=== PATIENT | female | born 1980 | race Caucasian/White ===

== ENCOUNTER 2016-10-09 13:40 | Emergency (ER) | payer BC ==
[~2016-10-09] VITALS: Ht 167.6 cm; Wt 79.5 kg
[~2016-10-09 13:40] MED LIST: ALDOMET 250MG250 MG PO; AMBIEN 5MG TABLE5 MG PO; AMBIEN CR 12.12.5 MG PO; APRI 0.15 MG-0.1 TAB PO; ATIVAN 0.50.5 MG/TAB PO; ATIVAN 1MG T1 MG/TAB PO; BUSPAR DIVIDOSE15 MG PO; BUSPAR10 MG PO; CATAPRES 0.1MG0.1 MG PO; CINNAMON500 MG PO; CLIMARA 0.1 PATCH.WK TD; CORTEF 10MG TAB10 MG PO; CORTEF 20MG TAB20 MG PO; CORTEF5 MG PO; DESYREL 50MG50 MG PO; DILAUDID 2MG TAB2 MG PO; ECHINACEA 5001 EACH PO; FISH OIL500 MG PO; FLEXERIL 1010 MG/TAB PO; KLONOPIN 1MG1 MG PO; KLOR-CON M2020 MEQ PO; LEVOXYL0.112 MG PO; LEVOXYL0.125 MG PO; LINZESS290CAP PO; LORTAB 5/500 501 TAB PO; MOBIC 7.5MG7.5 MG PO; MOBIC15 MG PO; MULTI VITAMINS1 TAB PO; MULTIVITAMIN; NAPROSYN500 MG PO; NEURONTIN100 MG/CAP PO; NEURONTIN600 MG/TAB PO; NORCO 325 MG-51 TAB PO; NORVASC 10MG10 MG PO; NORVASC 5MG5 MG/TAB PO; NORVASC2.5 MG PO; PEPCID 20MG TAB20 MG PO; PERCOCET 325 MG1 TA2 PO; PRENATAL1 TA2 PO; PROBIOTIC-MAJOR PO; PROGESTERONE PO; PROTONIX20 MG PO; ROBAXIN 50500 MG/TAB PO; ROBAXIN 75750 MG/TAB PO; ROXICODONE15 MG PO; SYNTHROID 0.10.15 MG PO; SYNTHROID0.112 MG/T PO; SYNTHROID0.125 MG/T PO; TOPROL XL 25MG25 MG PO; TOPROL XL 50MG50 MG PO; TOPROL XL100 MG PO; TRANDATE300 MG PO; TURMERIC500 MG PO; TYLENOL PM EXTR1 TA1 PO; ULTRAM 50MG TAB50 MG PO; VITAMIN D32000 I1 PO; ZOFRAN 4MG T4 MG/TAB PO; ZOFRAN ODT8 MG PO; ZOLOFT 100MG100 MG PO; ZOLOFT 50MG50 MG PO
[2016-10-09 13:43] VITALS: TEMP 98.3
[2016-10-09 14:41] LABS: BASO % 0.4 % (0.0-2.0); EOS # 0.4 (0.0-0.7); EOS % 5.3 % (0-4.0); GRAN # 4.9 (1.4-6.5); GRAN % 65.2 % (42.2-75.2); HEMATOCRIT 44.5 % (37.0-47.0); HEMOGLOBIN 14.4 g/dl (12.5-16.0); LYMPH # 1.7 (1.2-3.4); LYMPH % 22.1 % (20.0-51.0); MEAN CELL VOLUME 85 fl (80.0-100.0); MEAN CORPUSCULAR HEMOGLOBIN 28 pg (27.0-31.0); MEAN CORPUSCULAR HGB CONC 32 g/dl (33.0-37.0); MEAN PLATELET VOLUME 9.9 fl (7.4-10.4); MONO # 0.5 (0.1-0.6); MONO % 6.7 % (1.7-9.3); PLATELET COUNT 225 K/mm3 (130-400); RED BLOOD COUNT 5.23 M/mm3 (4.10-5.30); WHITE BLOOD COUNT 7.5 K/mm3 (4.8-10.8)
[2016-10-09 14:59] LABS: ADJUSTED CALCIUM 9.3 mg/dL (8.4-10.2); ALBUMIN 4.3 gm/dL (3.5-5.0); BILIRUBIN,TOTAL 0.7 mg/dL (0.0-1.0); C-REACTIVE PROTEIN 6.6 mg/dL (0.0-0.9); CALCIUM 9.5 mg/dL (8.4-10.2); CREATININE, serum 0.76 mg/dL (0.52-1.25); POTASSIUM 3.9 mmol/L (3.4-5.0); TOTAL PROTEIN 7.4 gm/dL (6.4-8.2)
[2016-10-09 15:26] LABS: THYROID STIMULATING HORMONE 0.198 uIU/mL (0.465-4.680)
[2016-10-09] MEDS ORDERED: ZOFRAN8 MG PO (18:50)
[2016-10-09] MEDS ORDERED: ULTRAM 50MG TAB50 MG PO (18:50)
[2016-10-09 19:54] VITALS: BP 98/61; PULSE 74
== END 2016-10-09 20:00 | disposition home or self-care (01) ==
LOC: COL.ER 13:40
PROVIDERS: Nurse Practitioner
DX: E86.9 Volume depletion, unspecified (principal); R10.84 Generalized abdominal pain; I10 Essential (primary) hypertension; R11.2 Nausea with vomiting, unspecified; R19.7 Diarrhea, unspecified
CPT/HCPCS: J1720; J2270; J2405; J2550; J2765; J3010; J7030; Q9967

== ENCOUNTER 2016-12-12 12:37 | Emergency (ER) | payer BC ==
[~2016-12-12] VITALS: Ht 167.6 cm; Wt 77.3 kg
[~2016-12-12 12:37] MED LIST changes: +ZOFRAN8 MG PO
[2016-12-12 12:42] VITALS: BP 149/85; TEMP 98.9
[2016-12-12 14:54] VITALS: PULSE 71
== END 2016-12-12 14:55 | disposition home or self-care (01) ==
LOC: COL.ER 12:37
DX: S00.83XA Contusion of other part of head, initial encounter (principal); S00.81XA Abrasion of other part of head, initial encounter; M62.830 Muscle spasm of back; G89.29 Other chronic pain; M54.2 Cervicalgia; E23.0 Hypopituitarism; G90.1 Familial dysautonomia [Riley-Day]; Z87.820 Personal history of traumatic brain injury; W18.30XA Fall on same level, unspecified, initial encounter; Y92.009 Unspecified place in unspecified non-institutional (private) residence as the place of occurrence of the external cause
CPT/HCPCS: J2270

== ENCOUNTER 2017-11-07 16:51 | Emergency (ER) | payer BC ==
[~2017-11-07] VITALS: Ht 167.6 cm; Wt 68.2 kg
[2017-11-07 17:05] VITALS: BP 142/95; TEMP 98
[2017-11-07 21:17] VITALS: PULSE 68
== END 2017-11-07 21:18 | disposition home or self-care (01) ==
LOC: COL.ER 16:51
DX: R47.89 Other speech disturbances (principal); Z79.52 Long term (current) use of systemic steroids; W01.198A Fall on same level from slipping, tripping and stumbling with subsequent striking against other object, initial encounter
CPT/HCPCS: J3010

== ENCOUNTER 2017-12-30 14:36 | Emergency (ER) | payer BC ==
[~2017-12-30] VITALS: Ht 167.6 cm; Wt 70.0 kg
[2017-12-30 14:44] VITALS: TEMP 97.1
[2017-12-30] MEDS ORDERED: ROXICODONE15 MG PO (15:07)
[2017-12-30 15:29] LABS: BASO % 0.3 % (0.0-2.0); EOS # 0.1 (0.0-0.7); EOS % 1.6 % (0-4.0); GRAN # 5.3 (1.4-6.5); GRAN % 70.1 % (42.2-75.2); HEMATOCRIT 40.1 % (37.0-47.0); HEMOGLOBIN 13.3 g/dl (12.5-16.0); LYMPH # 1.7 (1.2-3.4); LYMPH % 22.5 % (20.0-51.0); MEAN CELL VOLUME 91 fl (80.0-100.0); MEAN CORPUSCULAR HEMOGLOBIN 30 pg (27.0-31.0); MEAN CORPUSCULAR HGB CONC 33 g/dl (33.0-37.0); MEAN PLATELET VOLUME 9.6 fl (7.4-10.4); MONO # 0.4 (0.1-0.6); MONO % 5.2 % (1.7-9.3); PLATELET COUNT 221 K/mm3 (130-400); RED BLOOD COUNT 4.43 M/mm3 (4.10-5.30); REDCELL DISTRIBUTION WIDTH-CV 13.2 % (11.5-14.5)
[2017-12-30 15:40] LABS: ALANINE AMINOTRANSFERASE 17 U/L (9-52); ALBUMIN 4.1 gm/dL (3.5-5.0); ALKALINE PHOSPHATASE 45 U/L (50-136); ANION GAP 12 mmol/L (7-16); AST,SGOT 21 U/L (15-37); BILIRUBIN,TOTAL 0.3 mg/dL (0.0-1.0); BLOOD UREA NITROGEN 13 mg/dL (7-17); CALCIUM 9.6 mg/dL (8.4-10.2); CARBON DIOXIDE 23 mmol/L (22-30); CHLORIDE 103 mmol/L (98-107); CREATININE, serum 0.88 mg/dL (0.52-1.25); GLUCOSE 94 mg/dL (74-106); POTASSIUM 4.6 mmol/L (3.4-5.0); SODIUM 138 mmol/L (137-145); TOTAL PROTEIN 7.3 gm/dL (6.4-8.2)
[2017-12-30 16:13] LABS: PROTHROMBIN TIME 11.6 SECONDS (9.7-12.8); TROPONIN-I < 0.012 ng/mL (0.000-0.034)
[2017-12-30 18:00] VITALS: BP 101/65; PULSE 54
== END 2017-12-30 18:00 | disposition home or self-care (01) ==
LOC: COL.ER 14:36
PROVIDERS: Emergency Medicine
DX: G90.9 Disorder of the autonomic nervous system, unspecified (principal); R55 Syncope and collapse; E86.9 Volume depletion, unspecified; I10 Essential (primary) hypertension; E78.5 Hyperlipidemia, unspecified; F41.9 Anxiety disorder, unspecified; F32.9 Major depressive disorder, single episode, unspecified; F17.210 Nicotine dependence, cigarettes, uncomplicated; Z98.890 Other specified postprocedural states
CPT/HCPCS: J7030; Q9967

== ENCOUNTER → 2018-01-06 | Outpatient (CLI) | payer BC | LOC: COL.VAS 09:24 | DX: I34.0 Nonrheumatic mitral (valve) insufficiency (principal); I37.1 Nonrheumatic pulmonary valve insufficiency; I95.9 Hypotension, unspecified; R00.1 Bradycardia, unspecified ==

== ENCOUNTER → 2019-02-18 | Outpatient (CLI) | payer BC | LOC: COL.RAD 14:00 | DX: M47.27 Other spondylosis with radiculopathy, lumbosacral region (principal); G90.1 Familial dysautonomia [Riley-Day] ==

== ENCOUNTER → 2019-02-19 | Outpatient (CLI) | payer BC | LOC: COL.RAD 13:55 | DX: Q65.89 Other specified congenital deformities of hip (principal) | CPT/HCPCS: A9585; Q9967 ==

== ENCOUNTER 2019-05-17 13:23 | Emergency (ER) | payer MEDICARE ==
[~2019-05-17] VITALS: Ht 167.6 cm; Wt 73.9 kg
[2019-05-17 13:35] VITALS: BP 107/68; TEMP 98
[2019-05-17 16:43] VITALS: PULSE 57
== END 2019-05-17 16:43 | disposition home or self-care (01) ==
LOC: COL.ER 13:23
DX: G89.29 Other chronic pain (principal); M54.2 Cervicalgia; I10 Essential (primary) hypertension; E07.9 Disorder of thyroid, unspecified; F17.210 Nicotine dependence, cigarettes, uncomplicated; Z98.890 Other specified postprocedural states
CPT/HCPCS: J3010

== ENCOUNTER 2019-06-03 11:09 | Outpatient (CLI) | payer MEDICARE ==
[2019-06-03 11:15] VITALS: BP 98/61; PULSE 54; TEMP 98.6
[2019-06-03 11:44] LABS: BASO % 0.3 % (0.0-2.0); EOS # 0.1 (0.0-0.7); EOS % 0.8 % (0-4.0); GRAN # 7.5 (1.4-6.5); GRAN % 79.6 % (42.2-75.2); LYMPH # 1.5 (1.2-3.4); LYMPH % 15.9 % (20.0-51.0); MEAN CELL VOLUME 90 fl (80.0-100.0); MEAN CORPUSCULAR HEMOGLOBIN 30 pg (27.0-31.0); MEAN CORPUSCULAR HGB CONC 33 g/dl (33.0-37.0); MEAN PLATELET VOLUME 8.9 fl (7.4-10.4); MONO # 0.3 (0.1-0.6); MONO % 3.2 % (1.7-9.3); PLATELET COUNT 277 K/mm3 (130-400); REDCELL DISTRIBUTION WIDTH-CV 12.8 % (11.5-14.5)
[2019-06-03 11:45] LABS: HEMATOCRIT 35.9 % (37.0-47.0)
[2019-06-03 11:52] LABS: ALBUMIN 4.1 gm/dL (3.5-5.0); BILIRUBIN,TOTAL 0.4 mg/dL (0.0-1.0); CALCIUM 8.9 mg/dL (8.4-10.2); CREATININE, serum 0.82 (0.52-1.25); POTASSIUM 3.3 mmol/L (3.4-5.0); TOTAL PROTEIN 6.7 gm/dL (6.4-8.2)
--- NOTE | 2019-06-03 14:00 | NUR ---
Pt getting frustrated, she ambulates to bathroom and refuses assistance. after she gets back from the bathroom, she is determined to leave. She does have scheduled pain meds that she needs to take, and these are late. Her father has offered to go to her home to get her overdue meds, however she states that is not an option. pt is standing in the hallway, allows this rn to remove her IV, but when I try to hold a 2x2 over the site, she states "I can hold my own hand, you are too much, lady". Christel KAPOOR is attempting to de-escalate pt, and offers her a wheelchair multiple times, however pt refuses. Her father walks with her to the exit, she refused to be accompanied...eventually, pt does return to unit to receive her 2nd liter. requests a different nurse. rn lactation aware. another nurse
[2019-06-03] MEDS ORDERED: VAGIFEM10 MCG VG (15:46)
[2019-06-03] MEDS ORDERED: TOPROL XL 50MG50 MG PO (15:53)
[2019-06-03 16:04] VITALS: BP 116/84; PULSE 69
[2019-06-03] MEDS ORDERED: ZOFRAN 4MG T4 MG/TAB PO (16:04)
[2019-06-03] MEDS ORDERED: PHENERGAN 25 TA25 MG PO (16:04)
[2019-06-03] MEDS ORDERED: XANAX 1MG1 MG PO (16:06)
== END 2019-06-03 17:00 | disposition home or self-care (01) ==
LOC: EUO 11:09
PROVIDERS: Family Medicine
DX: E27.49 Other adrenocortical insufficiency (principal); E86.0 Dehydration; E21.5 Disorder of parathyroid gland, unspecified
CPT/HCPCS: J1720; J7030

== ENCOUNTER → 2019-12-21 | Outpatient (CLI) | payer MEDICARE ==
[~2019-12-21] MED LIST changes: +PHENERGAN 25 TA25 MG PO; +VAGIFEM10 MCG VG; +XANAX 1MG1 MG PO
== END ==
LOC: COL.RAD 07:57
DX: M47.812 Spondylosis without myelopathy or radiculopathy, cervical region (principal)

== ENCOUNTER → 2019-12-22 | Outpatient (CLI) | payer MEDICARE | LOC: COL.RAD 08:15 | DX: M75.81 Other shoulder lesions, right shoulder (principal) | CPT/HCPCS: A9503 ==

== ENCOUNTER 2020-03-28 20:19 | Emergency (ER) | payer MEDICARE ==
[~2020-03-28] VITALS: Ht 167.6 cm; Wt 79.5 kg
[2020-03-28 20:27] VITALS: TEMP 98.3
[2020-03-28 21:06] LABS: BASO % 0.6 % (0.0-2.0); EOS # 0.5 (0.0-0.7); EOS % 7.3 % (0-4.0); GRAN # 3.6 (1.4-6.5); HEMOGLOBIN 12.8 g/dl (12.5-16.0); LYMPH # 1.9 (1.2-3.4); MEAN CELL VOLUME 92 fl (80.0-100.0); MEAN CORPUSCULAR HEMOGLOBIN 29 pg (27.0-31.0); MEAN CORPUSCULAR HGB CONC 32 g/dl (33.0-37.0); MEAN PLATELET VOLUME 8.9 fl (7.4-10.4); MONO # 0.7 (0.1-0.6); MONO % 9.8 % (1.7-9.3); PLATELET COUNT 235 K/mm3 (130-400); RED BLOOD COUNT 4.35 M/mm3 (4.10-5.30); REDCELL DISTRIBUTION WIDTH-CV 13.3 % (11.5-14.5)
[2020-03-28] MEDS ORDERED: LYSTEDA650 MG PO (21:06)
[2020-03-28] MEDS ORDERED: PAXIL 20MG20 MG PO (21:17)
[2020-03-28] MEDS ORDERED: LAMICTAL 25MG T25 MG (21:19)
[2020-03-28 21:30] VITALS: BP 112/78; PULSE 80
== END 2020-03-28 21:30 | disposition home or self-care (01) ==
LOC: COL.ER 20:19
PROVIDERS: Family Medicine
DX: I80.3 Phlebitis and thrombophlebitis of lower extremities, unspecified (principal)

== ENCOUNTER 2020-05-11 00:34 | Emergency (ER) | payer MEDICARE ==
[~2020-05-11] VITALS: Ht 167.6 cm; Wt 81.8 kg
[~2020-05-11 00:34] MED LIST changes: +LAMICTAL 25MG T25 MG; +LYSTEDA650 MG PO; +PAXIL 20MG20 MG PO
[2020-05-11 00:37] VITALS: BP 141/96; PULSE 78; TEMP 98.6
== END 2020-05-11 03:00 | disposition left against medical advice (07) ==
LOC: COL.ER 00:34
DX: M25.551 Pain in right hip (principal); R51 Headache; F41.9 Anxiety disorder, unspecified; G89.29 Other chronic pain; F17.200 Nicotine dependence, unspecified, uncomplicated; Z88.8 Allergy status to other drugs, medicaments and biological substances; Y04.0XXA Assault by unarmed brawl or fight, initial encounter; Y92.009 Unspecified place in unspecified non-institutional (private) residence as the place of occurrence of the external cause

== ENCOUNTER → 2020-06-22 | Outpatient (CLI) | payer MEDICARE | LOC: ZCOL.LAB 17:30 | DX: Z20.828 Contact with and (suspected) exposure to other viral communicable diseases (principal) ==

== ENCOUNTER → 2020-11-29 | Outpatient (CLI) | payer MEDICARE | LOC: COL.RAD 14:40 | DX: Z87.820 Personal history of traumatic brain injury (principal) ==

== ENCOUNTER 2021-05-18 19:40 | Emergency (ER) | payer MEDICARE ==
[2021-05-18 19:53] VITALS: TEMP 98.1
[2021-05-18 21:03] LABS: BASO % 0.3 % (0.0-2.0); EOS # 0.2 (0.0-0.7); EOS % 2.5 % (0-4.0); GRAN # 2.6 (1.4-6.5); GRAN % 37.5 % (42.2-75.2); HEMATOCRIT 40.4 % (37.0-47.0); HEMOGLOBIN 13.9 g/dl (12.5-16.0); LYMPH # 3.4 (1.2-3.4); LYMPH % 50.4 % (20.0-51.0); MEAN CELL VOLUME 85 fl (80.0-100.0); MEAN CORPUSCULAR HEMOGLOBIN 29 pg (27.0-31.0); MEAN CORPUSCULAR HGB CONC 34 g/dl (33.0-37.0); MEAN PLATELET VOLUME 9.6 fl (7.4-10.4); MONO # 0.6 (0.1-0.6); MONO % 9.2 % (1.7-9.3); PLATELET COUNT 274 K/mm3 (130-400); RED BLOOD COUNT 4.77 M/mm3 (4.10-5.30); REDCELL DISTRIBUTION WIDTH-CV 13.1 % (11.5-14.5)
[2021-05-18 21:43] LABS: ALBUMIN 4.1 gm/dL (3.5-5.0); BILIRUBIN,TOTAL 0.4 mg/dL (0.2-1.2); CALCIUM 9.7 mg/dL (8.4-10.2); CREATININE, serum 0.84 mg/dL (0.57-1.11); TOTAL PROTEIN 6.7 gm/dL (6.2-8.1)
[2021-05-18 21:48] LABS: TROPONIN-I 0.017 ng/mL (0.00-0.033)
[2021-05-18 23:36] VITALS: BP 113/78; PULSE 50
== END 2021-05-19 00:18 | disposition home or self-care (01) ==
LOC: COL.ER 19:40
PROVIDERS: Emergency Medicine
DX: E27.40 Unspecified adrenocortical insufficiency (principal); E86.0 Dehydration; E87.6 Hypokalemia; I95.9 Hypotension, unspecified; I10 Essential (primary) hypertension; K21.9 Gastro-esophageal reflux disease without esophagitis; F17.290 Nicotine dependence, other tobacco product, uncomplicated; Z79.899 Other long term (current) drug therapy
CPT/HCPCS: J1720; J3480; J7030

== ENCOUNTER 2022-01-26 16:56 | Emergency (ER) | payer MEDICARE ==
[~2022-01-26] VITALS: Ht 167.6 cm; Wt 50.0 kg
[2022-01-26 17:05] VITALS: TEMP 97.7
[2022-01-26 17:59] LABS: BASO % 0.5 % (0.0-2.0); EOS # 0.1 K/mm3 (0.0-0.7); EOS % 1.3 % (0.0-4.0); GRAN # 2.3 K/mm3 (1.4-6.5); GRAN % 57.7 % (42.2-75.2); HEMATOCRIT 42.7 % (37.0-47.0); HEMOGLOBIN 14.2 g/dl (12.5-16.0); LYMPH # 1.4 K/mm3 (1.2-3.4); LYMPH % 35.4 % (20.0-51.0); MEAN CELL VOLUME 85 fl (80.0-100.0); MEAN CORPUSCULAR HEMOGLOBIN 28 pg (27-31); MEAN CORPUSCULAR HGB CONC 33 g/dl (33.0-37.0); MONO # 0.2 K/mm3 (0.1-0.6); MONO % 4.8 % (1.7-9.3); PLATELET COUNT 270 K/mm3 (130-400); RED BLOOD COUNT 5.04 M/mm3 (4.10-5.30); REDCELL DISTRIBUTION WIDTH-CV 12.5 % (11.5-14.5)
[2022-01-26 18:20] LABS: ALBUMIN 4.8 gm/dL (3.5-5.0); C-REACTIVE PROTEIN 0.03 mg/dL (0.00-0.50); CREATININE, serum 0.83 mg/dL (0.57-1.11); POTASSIUM 4.2 mmol/L (3.5-4.5); TOTAL PROTEIN 7.5 gm/dL (6.2-8.1)
[2022-01-26 19:57] VITALS: BP 113/71; PULSE 75
== END 2022-01-26 20:00 | disposition home or self-care (01) ==
LOC: COL.ER 16:56
PROVIDERS: Physician Assistant
DX: J02.9 Acute pharyngitis, unspecified (principal); K08.89 Other specified disorders of teeth and supporting structures; Z20.822 Contact with and (suspected) exposure to COVID-19; Z28.310 Unvaccinated for COVID-19
CPT/HCPCS: J1885; J2270; J7030

== ENCOUNTER 2024-05-27 22:46 | Emergency (ER) | payer MEDICARE ==
[~2024-05-27] VITALS: Ht 167.6 cm; Wt 63.6 kg
[~2024-05-27 22:46] MED LIST changes: +BUSPAR 30MG30 MG/TAB PO; -BUSPAR DIVIDOSE15 MG PO; -LAMICTAL 25MG T25 MG; +LAMICTAL 25MG T25 MG PO
[2024-05-27] MEDS ORDERED: Ondansetron 4 MG/2 ML VIAL IV ONE (23:00)
[2024-05-27 23:18] LABS: BASO % 0.2 % (0.0-2.0); EOS # 0.1 K/mm3 (0.0-0.7); EOS % 0.6 % (0.0-4.0); GRAN # 7.7 K/mm3 (1.4-6.5); GRAN % 72.8 % (42.2-75.2); HEMATOCRIT 40.8 % (37.0-47.0); HEMOGLOBIN 14.5 g/dl (12.5-16.0); LYMPH # 2.2 K/mm3 (1.2-3.4); LYMPH % 21.3 % (20.0-51.0); MEAN CELL VOLUME 83 fl (80.0-100.0); MEAN CORPUSCULAR HEMOGLOBIN 30 pg (27-31); MEAN CORPUSCULAR HGB CONC 36 g/dl (33.0-37.0); MEAN PLATELET VOLUME 9.1 fl (7.4-10.4); MONO # 0.5 K/mm3 (0.1-0.6); MONO % 4.9 % (1.7-9.3); PLATELET COUNT 309 K/mm3 (130-400); RED BLOOD COUNT 4.92 M/mm3 (4.10-5.30); REDCELL DISTRIBUTION WIDTH-CV 12.6 % (11.5-14.5)
[2024-05-27] MEDS ORDERED: LORazepam 2 MG/ML 1 ML VIAL IV ONE (23:30)
[2024-05-27 23:37] LABS: ALBUMIN 4.5 g/dL (3.5-5.0); BILIRUBIN,TOTAL 0.8 mg/dL (0.2-1.2); CALCIUM 10.3 mg/dL (8.4-10.2); CREATININE, serum 0.79 mg/dL (0.57-1.11); TOTAL PROTEIN 7.1 g/dl (6.2-8.1)
[2024-05-27] MEDS ORDERED: Potassium Chloride 100 ML IV ONE (23:45)
[2024-05-27] MEDS ORDERED: droPERidol 2.5 MG/ML 2 ML VIAL IV ONE (23:45)
[2024-05-28] MEDS ORDERED: NS 500 ML IV ONE (01:15)
[2024-05-28] MEDS ORDERED: ZOFRAN ODT4 MG PO (01:29)
[2024-05-28 01:47] VITALS: BP 167/94; PULSE 85
[2024-05-28] MEDS ORDERED: NS 1,000 ML IV ONE (23:45)
[2024-05-29] MEDS ORDERED: PRISTIQ100 MG PO (10:06)
== END 2024-05-28 01:47 | disposition home or self-care (01) ==
LOC: COL.ER 22:46
PROVIDERS: Physician Assistant
DX: R10.84 Generalized abdominal pain (principal); R03.0 Elevated blood-pressure reading, without diagnosis of hypertension; R11.2 Nausea with vomiting, unspecified; Z87.891 Personal history of nicotine dependence
CPT/HCPCS: J1790; J2060; J2405; J3480; J7030; J7040

== ENCOUNTER 2024-05-28 13:00 | Observation (INO) | payer MEDICARE ==
[~2024-05-28] VITALS: Ht 167.6 cm; Wt 71.5 kg
[~2024-05-28 13:00] MED LIST changes: +ZOFRAN ODT4 MG PO
[2024-05-28] MEDS ORDERED: NS 1,000 ML IV ONE ×2 (14:45)
[2024-05-28] MEDS ORDERED: Promethazine 50 MG/ML 1 ML VIAL IM ONE (14:45)
[2024-05-28] MEDS ORDERED: Morphine 10 MG/ML VIAL IM ONE (14:45)
[2024-05-28 15:35] LABS: BASO % 0.2 % (0.0-2.0); EOS % 0.1 % (0.0-4.0); GRAN # 9.2 K/mm3 (1.4-6.5); GRAN % 80.4 % (42.2-75.2); HEMATOCRIT 42.5 % (37.0-47.0); HEMOGLOBIN 15.4 g/dl (12.5-16.0); LYMPH # 1.4 K/mm3 (1.2-3.4); LYMPH % 12.2 % (20.0-51.0); MEAN CELL VOLUME 81 fl (80.0-100.0); MEAN CORPUSCULAR HEMOGLOBIN 29 pg (27-31); MEAN CORPUSCULAR HGB CONC 36 g/dl (33.0-37.0); MEAN PLATELET VOLUME 9.2 fl (7.4-10.4); MONO # 0.8 K/mm3 (0.1-0.6); MONO % 6.7 % (1.7-9.3); PLATELET COUNT 316 K/mm3 (130-400); RED BLOOD COUNT 5.27 M/mm3 (4.10-5.30); REDCELL DISTRIBUTION WIDTH-CV 12.5 % (11.5-14.5)
[2024-05-28 15:50] LABS: ALBUMIN 4.4 g/dL (3.5-5.0); BILIRUBIN,TOTAL 1.3 mg/dL (0.2-1.2); CALCIUM 9.4 mg/dL (8.4-10.2); CREATININE, serum 0.72 mg/dL (0.57-1.11)
[2024-05-28] MEDS ORDERED: Iohexol 300 - 100 ML VIAL IV ONE (16:09)
[2024-05-28] MEDS ORDERED: NS 100 ML IV SCH (16:10)
[2024-05-28] MEDS ORDERED: Docusate Sodium 100 MG CAP PO PRN (17:00)
[2024-05-28] MEDS ORDERED: Ondansetron 4 MG/2 ML VIAL IV PRN (17:00)
[2024-05-28] MEDS ORDERED: NS 1,000 ML IV SCH (17:00)
[2024-05-28] MEDS ORDERED: Acetaminophen 325 MG TAB PO PRN (17:00)
[2024-05-28] MEDS ORDERED: Morphine 4 MG/ML VIAL IV PRN (17:00)
[2024-05-28] MEDS ORDERED: Polyethylene Glycol 3350 17 GM PDS PO PRN (17:00)
[2024-05-28 17:38] LABS: COLLECTION METHOD CLEAN CATCH
[2024-05-28 17:53] LABS: URINE APPEARANCE CLEAR (CLEAR/HAZY); URINE BLOOD NEGATIVE (NEGATIVE); URINE COLOR YELLOW (YELLOW); URINE GLUCOSE NEGATIVE (NEGATIVE); URINE KETONE 4+ (NEGATIVE); URINE NITRATE NEGATIVE (NEGATIVE); URINE PROTEIN(semi-quant) 1+ (NEGATIVE); URINE UROBILINOGEN 0.2 E.U/dL (0.2-1.0)
[2024-05-28] MEDS ORDERED: Potassium Chloride 100 ML IV SCH (18:15)
[2024-05-28] MEDS ORDERED: *Potassium Replacement Protocol MC SCH (18:15)
--- NOTE | 2024-05-28 19:30 | NUR ---
RECEIVED REPORT FROM Himanshu NURSEANA. PATIENT ARRIVAL TO UNIT FOR ADMIT TO ROOM 319 PENDING.
[2024-05-28 20:00] VITALS: BP 117/75; PULSE 110; TEMP 98.4
--- NOTE | 2024-05-28 20:13 | NUR ---
PATIENT ARRIVE TO ROOM, PER E.D. CART.
[2024-05-28 21:00] VITALS: BP_SYST 117
--- NOTE | 2024-05-28 21:42 | NUR ---
PATIENT REFUSING TO HAVE VS TAKEN DURING THE NIGHT OR HAVE LABS DRAWN. INFORMED ALLEY CLEANER PROVIDER OF PATIENT'S REFUSAL WITH ORDERS GIVEN TO HAVE VS CHECKED EVERY 8 HOURS.
[2024-05-28 23:41] VITALS: BP 110/74; PULSE 87; TEMP 98.3
[2024-05-29] VITALS (8 sets, daily range): BP systolic 104–114; BP diastolic 57–80; PULSE 68–70; TEMP 98.3–98.4
--- NOTE | 2024-05-29 00:59 | NUR ---
REQUESTED AND GIVEN MORPHINE FOR CHRONIC PAIN, SEE MAR. NO OTHER NEEDS REPORTED AT THIS TIME.
[2024-05-29] MEDS ORDERED: Potassium Chloride 100 ML IV SCH (03:15)
--- NOTE | 2024-05-29 07:03 | NUR ---
CHANGE OF SHIFT REPORT GIVEN TO DAY SHIFT NURSEKAVIN.
--- NOTE | 2024-05-29 08:40 | NUR ---
THIS RN WAS AT BEDSIDE WHEN THE PATIENT ADDRESSED CONCERNS FOR NOT BEING ON HER NORMAL HOME MEDICATIONS, ESPCIALLY ONES TO PREVENT SEIZURE ACTIVITY. PATIENT STATES SHE HAS NOT BEEN DRY HEAVING AND HAS NOT VOMITED SINCE YESTERDAY. REPORTS HER PAIN IS A 7/10 IN HER ABDOMEN. PATIENT ALSO STATES SHE IS WORRIED ABOUT STAYING UP ON HER HOME REGIMEN OF PAIN MANAGEMENT. PATIENT HAS BEEN TOLERATING HER CLEAR LIQUID DIET WITH SMALL SIPS. THE IV POTASSIUM WAS BEGINING TO IRRITATE HER IV AND PATIENT REQUESTED IT BE TURNED OFF. THIS RN INFORMED PATIENT THAT SHE COULD TAKE AN ORAL VERSION AND SHE REQUESTED TO DO THAT. THIS RN WAS IN THE ROOM WITH PATIENT WHILE ON THE PHONE WITH [facility] AND WE REVIEWED HER HOME MEDICATIONS LIST. THIS RN UPDATED DR. FOWLER.
[2024-05-29] MEDS ORDERED: Magnesium Sulfate 4% 50 ML IV ONE (10:00)
[2024-05-29] MEDS ORDERED: PRISTIQ100 MG PO (10:06)
[2024-05-29] MEDS ORDERED: busPIRone 7.5 MG TABLET PO SCH (10:25)
[2024-05-29] MEDS ORDERED: Hydrocortisone 10 MG TAB PO SCH (10:25)
[2024-05-29] MEDS ORDERED: lamoTRIgine 100 MG TAB PO SCH (10:25)
[2024-05-29] MEDS ORDERED: ALPRAZolam 0.5 MG TAB PO PRN (10:30)
[2024-05-29] MEDS ORDERED: oxyCODONE 5 MG TAB PO PRN (10:30)
--- NOTE | 2024-05-29 11:35 | NUR ---
THIS RN ENTERED PATIENTS ROOM TO ADMINISTER HER ORAL MORNING MEDICATIONS ORDERED. PATIENT MOTHER IS AT BEDSIDE AT THIS TIME. THIS RN ASKED PATIENT IF SHE WOULD LIKE TO TAKE HER MEDICATIONS ONE AT A TIME SINCE SHE HAS HAD A DIFFICULT TIME TOLERATING LARGE AMOUNTS OF FLUID INTAKE. THE PATIENT BECAME AGGITATED THAT I WAS GIVING HER ORAL MEDICATIONS. WANTS TO KNOW IF THEY CAN BE GIVEN IV. THIS RN EXPLAINED THAT SINCE ABDOMINAL PAIN HAS IMPROVED, SHE HAS HAD NO NAUSEA OR VOMITING, AND HAS BEEN TOLERATING INTAKE WE WOULD LIKE TO SEE HOW SHE TOLERATES HER ORAL MEDICATIONS. PATIENT IS NOT OK WITH THIS. SHE WAS UNDER THE IMPRESSION THAT SHE WOULD BE RECEIVING EVERYTHING SHE POSSIBLY COULD IV MEDICATIONS FOR LONG SHE COULD. THIS RN ASKED THE PATIENT WHEN SHE FELT IT WOULD BE APPROPRIATE TO START BACK ON ORAL MEDICATIONS. PATIENT THEN ASKED WHY I'M TELLING HER WHAT TO DO AND ALSO ASKING FOR HER OPINION AT THE SAME TIME. TRIED EXPLAINING TO THE PATIENT THAT I WAS TRYING TO INVOLVE HER IN HER CARE, SHE DOES NOT FEEL LIKE THIS IS TRUE AND REFUSES TO TAKE ORAL MEDICATIONS FROM ME. PATIENT PULLS OUT HER BAG AND REMOVES HER HOME MEDICATION OF 100MG LAMOTRIGINE AND STATES SHE'LL TAKE IT HERSELF. THIS RN EXPLAINED TO THE PATIENT SHE CANNOT DO THAT SINCE WE WILL HAVE NO DOCUMENTATION OF WHAT SHE'S BEEN TAKING. THIS RN TOLD PATIENT THAT I HAD THE SAME MEDICATION WITH ME THAT I COULD DISPENSE TO HER. AFTER ARGUING SHE AGREED TO TAKE THAT MEDICATIONS. PATIENT REFUSES TO HAVE HER HOME MEDICATIONS REMOVED FROM THE ROOM. PATIENT STATES SHE WILL NOT TAKE ANY OTHER MEDICATIONS ORALLY. THIS RN UPDATED DR. FOWLER OF THIS REFUSAL AND DOCUMENTED IN THE eMAR. THIS RN ASKED IF WE COULD ATTEMPT DRAWING HER ORDERED LABS OFF OF HER IV LINE SINCE SHE IS REFUSING LAB DRAWS. SHE REFUSES ME TO PULLED BLOOD FROM HER IV OR GET POKED BY LAB, SHE ALSO SAYS SHE WILL NOT ALLOW US TO TRY TO PLACE ANOTHER CENTRAL LINE. THIS RN NOTIFIED DR. FOWLER AND LAB. THIS RN TOLD THE PATIENT I WOULD CHART ALL ORAL MEDICATIONS REFUSED FOR NOW AND SPEAK WITH DR. FOWLER ABOUT THE PATIENT CONCERNS. WILL CONTINUE TO MONITOR FROM HERE.
[2024-05-29] MEDS ORDERED: Gabapentin 400 MG CAP PO SCH (13:00)
[2024-05-29] MEDS ORDERED: Pantoprazole 40 MG in NS 10 ML IV ONE (13:15)
--- NOTE | 2024-05-29 15:23 | NUR ---
Data: Patient and Patient's Mother accepted spiritual care visit offered during Embalmer Assistant rounds. Mother is Latter-Day. Daughter is undecided. RN visited during spiritual care visit to administer medications and answer Patient's questions. Assessment: Daughter is frustrated with her health concerns. Plan of Care: Embalmer Assistant provided supportive listening and a bible. Other resources made available were noted and/or photographed by Patient's Mother. Both Patient and her Mother expressed appreciation for the visit. Chaplains will remain available as needed/requested while Patient is admitted to this hospital.
--- NOTE | 2024-05-29 15:30 | NUR ---
THIS RN WAS ADMINISTERING MEDICATIONS WHEN PATIENT ASKED OF HER CORTISOL LAB VALUES HAVE COME BACK. THIS RN INFORMED PATIENT THAT THIS RN ASKED DR. FOWLER IF SHE WANTED TO ORDER THIS AROUND 1530 WHEN THE PATIENT HAD FIRST REQUESTED IT AND DR. FOWLER STATED SHE DID NOT NEED THAT INFORMATION AND WAS NOT GOING TO ORDER IT. PATIENT WAS UPSET BY THIS. STATES SHE "DOESN'T CARE OF THE DOCTOR DOESN'T WANT TO KNOW THE LAB VALUE, SHE WANTS TO KNOW IT." PATIENT ASKED IF I WOULD REITERATE TO DR. FOWLER THAT SHE IS REQUESTING IT AND IF SHE STILL REFUSES SHE WOULD LIKE TO TALK TO HER HERSELF. SHE THREATENED TO CALL HER PCP DR. VALENZUELA IF DR. FOWLER WOULD NOT ORDER THE LAB. THIS RN INFORMED DR. FOWLER OF EVERYTHING AND SHE STATED SHE WOULD NOT ORDER THE LAB AND ALSO SHE IS LEAVING THE HOSPITAL NOW SO SHE WILL NOT BE ABLE TO SEE THE PATIENT AGAIN NOELLE.
[2024-05-29 15:46] LABS: EOS % 0.2 % (0.0-4.0); GRAN # 4.7 K/mm3 (1.4-6.5); HEMATOCRIT 37.3 % (37.0-47.0); MEAN CELL VOLUME 83 fl (80.0-100.0); MEAN CORPUSCULAR HEMOGLOBIN 29 pg (27-31); MEAN CORPUSCULAR HGB CONC 36 g/dl (33.0-37.0); MEAN PLATELET VOLUME 9.3 fl (7.4-10.4); MONO # 0.3 K/mm3 (0.1-0.6); MONO % 4.5 % (1.7-9.3); PLATELET COUNT 299 K/mm3 (130-400); RED BLOOD COUNT 4.52 M/mm3 (4.10-5.30); REDCELL DISTRIBUTION WIDTH-CV 12.8 % (11.5-14.5)
[2024-05-29 15:48] LABS: HEMOGLOBIN 13.3 g/dl (12.5-16.0)
[2024-05-29 15:56] LABS: ALBUMIN 3.8 g/dL (3.5-5.0); BILIRUBIN,TOTAL 0.9 mg/dL (0.2-1.2); CALCIUM 8.6 mg/dL (8.4-10.2); CREATININE, serum 0.76 mg/dL (0.57-1.11); POTASSIUM 3.2 mEq/L (3.5-4.5); TOTAL PROTEIN 5.9 g/dl (6.2-8.1)
[2024-05-29] MEDS ORDERED: Potassium Bicarbonate/Citrate 20 MEQ Effervescent TAB PO SCH (17:00)
[2024-05-30] VITALS (10 sets, daily range): BP systolic 102–127; BP diastolic 62–88; PULSE 73–102; TEMP 97.4–98.7
[2024-05-30 07:18] LABS: BASO % 0.2 % (0.0-2.0); EOS # 0.3 K/mm3 (0.0-0.7); EOS % 4.5 % (0.0-4.0); GRAN % 33.8 % (42.2-75.2); HEMATOCRIT 37.5 % (37.0-47.0); LYMPH # 3.3 K/mm3 (1.2-3.4); LYMPH % 55.8 % (20.0-51.0); MEAN CELL VOLUME 85 fl (80.0-100.0); MEAN CORPUSCULAR HEMOGLOBIN 29 pg (27-31); MEAN CORPUSCULAR HGB CONC 35 g/dl (33.0-37.0); MEAN PLATELET VOLUME 9.6 fl (7.4-10.4); MONO # 0.3 K/mm3 (0.1-0.6); MONO % 5.7 % (1.7-9.3); PLATELET COUNT 288 K/mm3 (130-400); RED BLOOD COUNT 4.44 M/mm3 (4.10-5.30); REDCELL DISTRIBUTION WIDTH-CV 13.2 % (11.5-14.5)
[2024-05-30 07:36] LABS: ALANINE AMINOTRANSFERASE 64 U/L (0-55); ALBUMIN 3.6 g/dL (3.5-5.0); ALKALINE PHOSPHATASE 38 U/L (40-150); ANION GAP 8 mmol/L (7-16); AST,SGOT 47 U/L (5-34); BILIRUBIN,TOTAL 0.9 mg/dL (0.2-1.2); CALCIUM 8.6 mg/dL (8.4-10.2); CHLORIDE 113 mEq/L (98-107); CREATININE, serum 0.75 mg/dL (0.57-1.11); POTASSIUM 3.6 mEq/L (3.5-4.5); SODIUM 142 mEq/L (136-145); TOTAL PROTEIN 5.8 g/dl (6.2-8.1)
[2024-05-30 08:08] LABS: BLOOD UREA NITROGEN < 5 mg/dL (7-19); GLUCOSE 68 mg/dL (70-99)
--- NOTE | 2024-05-30 08:15 | NUR ---
THE PATIENT RESTED WELL OVER NIGHT. PRN PAIN MEDICATION PROVIDED FOR ABD PAIN MOSTLY RATED 6/10. THE PATIENT WAS ABLE TO TAKE IN CLEAR LIQUIDS AND ORAL MEDICATIONS WITHOUT N/V UNTIL AM. THE PATIENT REPORTED NAUSEA AND THE NEED FOR MORE PAIN MEDICAITON, BUT STATED ORAL PAIN MEDICAITON COULD NOT BE TAKEN D/T THE NAUSEA. SHE THEN REQUESTED IV MORPHINE. ZOFRAN AND MORPHINE IVP WERE PROVIDED. VITAL SIGNS STABLE OVER NIGHT.
[2024-05-30] MEDS ORDERED: Potassium Bicarbonate/Citrate 20 MEQ Effervescent TAB PO SCH (09:15)
--- NOTE | 2024-05-30 10:42 | NUR ---
Patient awake, alert and oriented. In bed, states her abdominal pain is worsening and that "I don't feel like this hospital is adequately treating me." She states concerns regarding her cortisol levels and that per her "I need to be on antibiotics, I know this is bacterial and I am getting worse." No BM overnight, cautiously agrees to take PO pills this AM, but again repeats "I will take them but I am getting worse, these will all come straight out of me." Takes all PO meds after discussion.
--- NOTE | 2024-05-30 13:55 | NUR ---
Dr. Burrell at the bedside rounding on patient. Patient's mother, father, and son at the bedside. Daughter in law participating in rounds with hospitalist. All questions asked by patient and family member answered by Dr. Burrell. Patient getting frustrated and agitated, repeatedly requesting that a cortisol level ordered. Dr. Burrell repeatedly explaining her plan of care and what tests are and are not necessary. Patient interrupting frequently while Dr. Burrell is trying to discuss case. Dr. Burrell offering to discuss case with PCP - pt verbalizes agreement. Repeated discussion of dosage of hydrocortisone - explained that our records have been checked with patient's stated Offer to transfer to another facility - patient and family state concern about information getting missed if she is transfered.
[2024-05-30] MEDS ORDERED: Pantoprazole 40 MG in NS 10 ML IV SCH (14:30)
[2024-05-30] MEDS ORDERED: Hydrocortisone 10 MG TAB PO ONE (14:45)
--- NOTE | 2024-05-30 15:15 | NUR ---
Dr. Burrell back at the bedside after discussing case with Dr. Mcfarland (patient's PCP). Pt to start general diet, adjust hydrocortisone dose; other lab results discussed. Patient agreeable to plan.
--- NOTE | 2024-05-30 18:29 | NUR ---
Patient in better spirits this afternoon, son at the bedside. Tolerated being advanced for dinner - per pt ate one piece of a quesadilla, some fruit and ice cream. No emesis or diarrhea. Has tolerated all PO medications today. Continuously endorses abdominal pain, stating it is "always at a 6/10" regardless of medication.
--- NOTE | 2024-05-30 20:32 | NUR ---
sterile proc tech called stating patients HR is in the 150s. Patient is in bathroom actively vomitting undigested food. Zofran given per dr subramanian.
[2024-05-30] MEDS ORDERED: Hydrocortisone 10 MG TAB PO SCH (21:00)
--- NOTE | 2024-05-30 21:02 | NUR ---
Patient still vomitting/dry heaving. Spoke to ANGELLA Yoo and new orders received for Compazine. Patient also C/O anxiety but does not think she will keep the xanax pill down. New orders for IV ativan per ANGELLA Yoo.
[2024-05-30] MEDS ORDERED: LORazepam 2 MG/ML 1 ML VIAL IV PRN (21:15)
--- NOTE | 2024-05-30 21:40 | NUR ---
Patient states she is still to nauseated to take her HS meds. Held at this time. Instructed to call for this nurse if she changes her mind. Verbalizes understanding. Call light in reach. Filemon monitor.
--- NOTE | 2024-05-30 22:56 | NUR ---
Patient called stating she was nauseated again. In the middle of telling this nurse she fell asleep. Had to say name twice in order to let her finish telling me that she was nauseas. Currently to early for nausea medications. Will check back on patient in one hour when zofran is available.
[2024-05-31 00:04] VITALS: BP_SYST 102
--- NOTE | 2024-05-31 00:10 | NUR ---
Patient resting eyes closed. No s/s of pain or discomfort noted. Will monitor.
[2024-05-31 04:40] VITALS: BP_SYST 102
--- NOTE | 2024-05-31 05:18 | NUR ---
Patient had one episode of nausea/vomitting early in shift. Compazine/zofran given with good results. C/O chronic pain x1 and morphine was given with good results. Also received one dose of ativan for anxiety. Is tolerating clear liquids but states she did not tolerate general diet from dinner. Emesis was a very small amount and consisted of undigested food. VS remained stable. IV to right upper arm flushes well with no s/s of infiltration noted-NS@100mls/hr. TELE reporting SR. Denies current needs. Call light in reach. Will monitor.
--- NOTE | 2024-05-31 05:46 | NUR ---
Patient called stating she is nauseas and is having pain-rating pain 8/10 on pain scale-described as constant ache. Compazine/morphine given per dr order. Will monitor.
[2024-05-31 06:54] LABS: BASO % 0.2 % (0.0-2.0); EOS # 0.3 K/mm3 (0.0-0.7); EOS % 4.5 % (0.0-4.0); GRAN # 2.2 K/mm3 (1.4-6.5); GRAN % 39.1 % (42.2-75.2); HEMOGLOBIN 11.9 g/dl (12.5-16.0); LYMPH # 2.7 K/mm3 (1.2-3.4); LYMPH % 49.5 % (20.0-51.0); MEAN CELL VOLUME 88 fl (80.0-100.0); MEAN CORPUSCULAR HEMOGLOBIN 29 pg (27-31); MEAN CORPUSCULAR HGB CONC 33 g/dl (33.0-37.0); MEAN PLATELET VOLUME 9.5 fl (7.4-10.4); MONO # 0.4 K/mm3 (0.1-0.6); MONO % 6.5 % (1.7-9.3); PLATELET COUNT 280 K/mm3 (130-400); RED BLOOD COUNT 4.09 M/mm3 (4.10-5.30); REDCELL DISTRIBUTION WIDTH-CV 13.8 % (11.5-14.5)
[2024-05-31 07:13] VITALS: BP 117/79; PULSE 73; TEMP 98.1
[2024-05-31 07:14] LABS: ALANINE AMINOTRANSFERASE 83 U/L (0-55); ALBUMIN 3.2 g/dL (3.5-5.0); ALKALINE PHOSPHATASE 40 U/L (40-150); ANION GAP 8 mmol/L (7-16); AST,SGOT 76 U/L (5-34); BILIRUBIN,TOTAL 0.3 mg/dL (0.2-1.2); CALCIUM 8.3 mg/dL (8.4-10.2); CHLORIDE 111 mEq/L (98-107); CREATININE, serum 0.78 mg/dL (0.57-1.11); GLUCOSE 97 mg/dL (70-99); SODIUM 143 mEq/L (136-145); TOTAL PROTEIN 5.1 g/dl (6.2-8.1)
[2024-05-31 07:24] LABS: BLOOD UREA NITROGEN < 5 mg/dL (7-19)
[2024-05-31] MEDS ORDERED: Potassium Bicarbonate/Citrate 20 MEQ Effervescent TAB PO SCH (07:30)
--- NOTE | 2024-05-31 09:00 | NUR ---
PATIENT ALERT AND ORIENTED X4.ON ROOM AIR, TELEMETRY INPLACE. REPORTS PAIN 10/10 TO NECK AND UPPER NECK. PATIENT DROWSY AT THIS TIME. ANSWERS QUESTIONS AND CURRENTLY EATING BREAKFAST. PATIENT MORNING MEDICATIONS GIVEN, SHIFT ASSESSMENT COMPLETED. CALL LIGHT WITHIN REACH. BED AT LOWEST POSITION.
[2024-05-31] MEDS ORDERED: CORTEF 10MG TAB10 MG PO (09:19)
[2024-05-31 09:46] VITALS: BP_SYST 117
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
[2024-05-31 12:12] VITALS: BP_SYST 117
--- NOTE | 2024-05-31 14:20 | NUR ---
patient discharge instructions given. patient verbalized understanding. patient iv and telemetry discontinued. patient escorted out of unit by pct and accompanied by family memeber.
--- NOTE | 2024-06-01 09:21 | NUR ---
Late Entry for Amaris Olivas. On 02/28/24, Amaris collaborated with Dr Burrell, who suggested due to patient's agitation, not to see patient and address discharge planning.
== END 2024-05-31 14:25 | disposition home or self-care (01) ==
LOC: COL.ER 13:00 → MEDICAL 17:54
PROVIDERS: Personal Emergency Response Attendant; ADMIT Hospitalist
DX: K52.9 Noninfective gastroenteritis and colitis, unspecified (principal); E80.6 Other disorders of bilirubin metabolism; R74.01 Elevation of levels of liver transaminase levels; E87.6 Hypokalemia; G90.1 Familial dysautonomia [Riley-Day]; I10 Essential (primary) hypertension; E03.9 Hypothyroidism, unspecified; K59.09 Other constipation; G47.00 Insomnia, unspecified; F39 Unspecified mood [affective] disorder; Z79.890 Hormone replacement therapy; Z79.899 Other long term (current) drug therapy; Z87.820 Personal history of traumatic brain injury; Z79.891 Long term (current) use of opiate analgesic; Z87.891 Personal history of nicotine dependence
CPT/HCPCS: G0378; J0780; J1650; J1720; J2060; J2270; J2405; J2470; J2550; J3475; J3480; J7030; Q9967